=== PATIENT | female | born 1995 | race Caucasian/White ===

== ENCOUNTER 2017-04-10 12:49 | Emergency (ER) | payer BC ==
[~2017-04-10] VITALS: Ht 165.1 cm; Wt 75.2 kg
[2017-04-10 12:52] VITALS: TEMP 36.8; Ht 165.1 cm; Wt 75.2 kg
[2017-04-10] MEDS ORDERED: KETOROLAC TROMETHAMINE 30 MG/ML VIAL IV STA (13:49)
[2017-04-10] MEDS ORDERED: SODIUM CHLORIDE 0.9% 1000ML 1,000 ML IV STA (13:49)
[2017-04-10 14:02] LABS: BASO % 0.8 %; BASO ABS # 0.06 K/uL (0-0.2); COMPLETE YES; EOS % 0.7 %; HEMATOCRIT 38.7 % (37-47); IG% 0.1 %; LYMPH % 34.8 %; LYMPH ABS # 2.47 K/uL (1.2-3.4); MEAN CELL VOLUME 92.8 fL (80-100); MEAN CORPUSCULAR HEMOGLOBIN 30.9 pg (25-34); MEAN CORPUSCULAR HGB CONC 33.3 g/dl (32-36); MEAN PLATELET VOLUME 10.2 fL (7.4-10.4); MONO % 4.5 %; NEUT % 59.1 %; PLATELET COUNT 299 K/uL (130-400); RED BLOOD COUNT 4.17 M/uL (4.2-5.4); WHITE BLOOD COUNT 7.09 K/uL (4.8-10.8)
[2017-04-10 14:10] LABS: BUN/CREATININE RATIO 12.2 (10-20); CALCIUM 8.9 mg/dl (8.5-10.1); CREATININE 0.85 mg/dl (0.60-1.20); POTASSIUM 3.4 mmol/L (3.5-5.1)
[2017-04-10 14:13] LABS: URINE APPEARANCE CLEAR (CLEAR); URINE BILIRUBIN NEG (NEG); URINE COLOR YELLOW; URINE EPITHELIAL CELL AUTO >30 /lpf (0-5); URINE NITRITE NEG (NEG); URINE SPECIFIC GRAVITY 1.005 (1.000-1.030); UROBILINOGEN NEG (NEG)
[2017-04-10 14:15] LABS: MANUAL MICROSCOPIC REQUIRED? NO; REVIEW REQ? NO
[2017-04-10 14:22] LABS: PREG INTERNAL NEGATIVE QC NEG CLEAR BACKGROUND; PREG INTERNAL POSITIVE QC POS CONTROL LINE
[2017-04-10] MEDS ORDERED: [UNRECOGNIZED DRUG - CODE] (14:50)
[2017-04-10] MEDS ORDERED: SULF1TAB92 PO (14:50)
[2017-04-10] MEDS ORDERED: BCPILLS PO (14:52)
--- NOTE | 2017-04-10 15:26 | DIAGNOSTIC IMAGING REPORT ---
EXAMINATION: PELVIC ULTRASOUND CLINICAL HISTORY: ABDOMINAL PAIN/N/V/D PAIN COMPARISON STUDY: None FINDINGS: The uterus measured 5.7 cm. The endometrial stripe measured 4 mm. The right ovary measured 3.0 cm with normal vascular flow. The left ovary measured 2.6 cm with normal vascular flow. There is no ultrasonographic evidence of ovarian torsion. It should be noted that ovarian torsion can be present with normal Doppler ultrasonographic findings. There was no evidence of pathologic free pelvic fluid. IMPRESSION: Normal study Electronically signed by: Joesph Ocasio M.D. 04/10/2017 3:24 PM Dictated Date/Time: 04/10/2017 3:23 PM
--- NOTE | 2017-04-10 16:27 | EMERGENCY ROOM VISIT NOTE ---
ED Visit Note EMERGENCY DEPARTMENT PROCEDURE NOTE: I was asked by Pio Dueñas PA-C to perform a pelvic exam on this 22-year-old white female patient, she requested a female provider. Please refer to their dictation for the complete history, physical exam, and ED course. EMERGENCY DEPARTMENT COURSE: Pelvic Exam: Genitalia are normal. Few scattered lesions consistent with molluscum contagiosum noted. Vagina is clean, white, physiologic appearing discharge. Cervix is without lesions. No cervical motion tenderness. The uterus is small, nontender The adnexa no masses, nontender
[2017-04-10] MEDS ORDERED: CEFTRIAXONE SOD 350MG/ML 1 GM VIAL IM ONE (16:30)
[2017-04-10 16:41] VITALS: BP 120/79; PULSE 62; O2SAT 99
--- NOTE | 2017-04-11 13:05 | EMERGENCY ROOM VISIT NOTE ---
ED Visit Note First contact with patient: 13:21 Chief Complaint: I have pain in my ovaries. History of Present Illness: Ms. Larios is a 22 year-old white female who ambulates into the ED complaining of bilateral deep abdominal/pelvic pain. Historically patient reports approximately 2 weeks ago she had unprotected sex and the day afterward she took the Morning after pill. She reports since that time she has been feeling well. Patient reports approximately 30 minutes ago she was driving her car and developed acute onset of bilateral lower abdominal/pelvic pain. Since that time her pain has been constant. She describes an underlying discomfort as a cramping sensation that is slightly worse than her normal menstrual cycle. That intermittently without provocation her pain increases transiently into a sharp pain. Her base pain is 5/10 and her sharp pain is 8/10. The pain is nonradiating. Her pain is not side dominant. She has not identified any aggravating or alleviating factors related to the pain. She has not taken any medications for pain prior to arrival at the hospital. She denies any associated symptoms including fevers, chills, sweats, skin eruptions, skin color changes, upper respiratory tract symptoms, shortness of breath, chest pain , nausea, vomiting, diarrhea, constipation, rectal bleeding, black/tarry stools , urinary symptoms, hematuria, vaginal bleeding, vaginal discharge, back/flank pain. Review of Systems: As noted above in history of present illness. All body systems were reviewed and found to be negative as noted above. Past Medical History: Unspecified skin disorder. Current Medications: control, imiquimod. Allergies to Medications: Bactrim. Social History: Patient is currently employed; she feels safe in her home environment; she denies tobacco use; she admits to alcohol use. Physical Examination: Vital Signs: Date Time Temp Pulse Resp B/P (MAP) Pulse Ox O2 Delivery O2 Flow Rate FiO2 04/10/17 16:41 62 19 120/79 99 Room Air 04/10/17 15:24 57 17 111/68 99 Room Air 04/10/17 12:52 36.8 87 18 133/82 95 Room Air GENERAL: 22-year-old female in mild distress due to pain, nontoxic-appearing, afebrile and hemodynamically stable. NEUROLOGICAL: Awake, alert and oriented to person, place and time. Answering questions appropriately and following commands. Normal gait. Good hand eye coordination. SKIN: Warm, dry and pink. No soft tissue eruptions or trauma noted. HEENT: Atraumatic and normocephalic. PERRLA. Sclera white and conjunctiva pink. Oral cavity moist and pink. Pharynx is nonerythematous or edematous. Speech normal. No lymphadenopathy. Trachea midline. No jugular venous distention. BACK: No tenderness over the bony spine. No CVA tenderness. THORAX: Lungs sounds are clear to auscultation and equal bilaterally with symmetrical chest wall. No wheezing, rales or rhonchi. No crepitus, tenderness , subcutaneous air or deformities noted. HEART: Regular rate and rhythm. No gallops, rubs or murmurs are appreciated. ABDOMEN: Flat and soft with mild bilateral lower quadrant/pelvic tenderness. Positive bowel sounds in all quadrants. No guarding, rigidity or organomegaly. PELVIC: Patient originally did not want myself to do the pelvic examination; later she reported because I was male. But then we had a female provider came in and she approved the pelvic examination. Please see procedural note by WAYNE Gandara. Ms. Grant verbally reported to me that her pelvic examination was unremarkable and cultures were taken and sent to the lab for testing. EXTREMITIES: Moves all extremities well on command and with purpose. All distal neurovascular statuses are intact and equal bilaterally. ED Course: Patient is assessed as noted above. Laboratory Testing: Test 04/10/17 13:28 04/10/17 13:30 04/10/17 16:20 Range/Units Urine Color YELLOW Urine Appearance CLEAR CLEAR Urine pH 7.0 4.5-7.5 Urine Specific [place] 1.005 1.000-1.030 Urine Protein NEG NEG Urine Glucose (UA) NEG NEG Urine Ketones NEG NEG Urine Occult Blood NEG NEG Urine Nitrite NEG NEG Urine Bilirubin NEG NEG Urine Urobilinogen NEG NEG Urine Leukocyte Esterase TRACE NEG Urine WBC (Auto) 5-10 0-5 /hpf Urine RBC (Auto) 0-4 0-4 /hpf Urine Hyaline Casts (Auto) 1-5 0-5 /lpf Urine Epithelial Cells (Auto) >30 0-5 /lpf Urine Bacteria (Auto) 1+ NEG White Blood Count 7.09 4.8-10.8 K/uL Red Blood Count 4.17 4.2-5.4 M/uL Hemoglobin 12.9 12.0-16.0 g/dL Hematocrit 38.7 37-47 % Mean Corpuscular Volume 92.8 80-100 fL Mean Corpuscular Hemoglobin 30.9 25-34 pg Mean Corpuscular Hemoglobin Concent 33.3 32-36 g/dl Platelet Count 299 130-400 K/uL Mean Platelet Volume 10.2 7.4-10.4 fL Neutrophils (%) (Auto) 59.1 % Lymphocytes (%) (Auto) 34.8 % Monocytes (%) (Auto) 4.5 % Eosinophils (%) (Auto) 0.7 % Basophils (%) (Auto) 0.8 % Neutrophils # (Auto) 4.18 1.4-6.5 K/uL Lymphocytes # (Auto) 2.47 1.2-3.4 K/uL Monocytes # (Auto) 0.32 0.11-0.59 K/uL Eosinophils # (Auto) 0.05 0-0.5 K/uL Basophils # (Auto) 0.06 0-0.2 K/uL RDW Standard Deviation 45.2 36.4-46.3 fL RDW Coefficient of Variation 13.2 11.5-14.5 % Immature Granulocyte % (Auto) 0.1 % Immature Granulocyte # (Auto) 0.01 0.00-0.02 K/uL Sodium Level 139 136-145 mmol/L Potassium Level 3.4 3.5-5.1 mmol/L Chloride Level 107 98-107 mmol/L Carbon Dioxide Level 24 21-32 mmol/L Anion Gap 8.0 3-11 mmol/L Blood Urea Nitrogen 10 7-18 mg/dl Creatinine 0.85 0.60-1.20 mg/dl Est Creatinine Clear Calc Drug Dose 103.6 ml/min Estimated GFR () 111.2 Estimated GFR (Non- 95.9 BUN/Creatinine Ratio 12.2 10-20 Random Glucose 94 70-99 mg/dl Calcium Level 8.9 8.5-10.1 mg/dl Total Bilirubin 0.4 0.2-1 mg/dl Direct Bilirubin 0.1 0-0.2 mg/dl Aspartate Amino Transf (AST/SGOT) 13 15-37 U/L Alanine Aminotransferase (ALT/SGPT) 25 12-78 U/L Alkaline Phosphatase 34 45-117 U/L Total Protein 7.9 6.4-8.2 gm/dl Albumin 4.3 3.4-5.0 gm/dl Lipase 119 73-393 U/L Human Chorionic Gonadotropin, Qual NEG NEG Trichomonas Preparation: Negative. Gram Stain: Pending. Genital Culture: Pending. Pelvic Ultrasound: Was reviewed by myself and read by the radiologist and showing a normal-appearing uterus, endometrial stripe, right and left ovaries with vascular flow and no signs of ovarian torsion. No evidence of pathological free fluid. Patient received 30 mg of Toradol IV for pain and 250 mg of ceftriaxone IM for her symptoms. Patient was reassessed multiple times during her stay in the emergency department. Patient's case was reviewed with Dr. Fuentes; we agreed on diagnostic approach , treatment, disposition and plan. Patient was educated about today's findings and instructed on her treatment plan ; she verbalizes understanding and agreement with this plan. Clinical Impression: Bilateral lower abdominal pain. Decision-Making: Initially my differential diagnosis I considered ectopic , PID, ovarian torsion, ovarian cyst rupture, appendicitis, constipation, urinary tract infection and other causes. Disposition: Patient discharged home in stable condition; prior to departure she was reassessed and subjectively reported she was pain and symptom-free. Plan: Patient was encouraged use ibuprofen or acetaminophen as needed for pain. Patient was encouraged to avoid unprotected sex. Patient was encouraged to follow-up with her PCP or her [facility] provider for recheck and culture results in 24-36 hours. Patient was encouraged return to the ED for worsening pain, fevers, vaginal discharge or any new/concerning symptoms.
[2017-04-13 02:42] LABS: CHLAMYDIA TRACH RNA*** NOT DETECTED (NOT DETECTED); GC (NEIS GONORRHOEAE)RNA** NOT DETECTED (NOT DETECTED)
== END 2017-04-10 17:10 | disposition home or self-care (01) ==
LOC: C.EDB 12:51 → C.EDC 17:10
DX: R10.30 Lower abdominal pain, unspecified (principal); Z79.3 Long term (current) use of hormonal contraceptives